=== PATIENT | male | born 1980 | race Two or more races ===

== ENCOUNTER 2022-09-26 22:03 | Emergency (ER) | payer OTHER ==
[~2022-09-26] VITALS: Ht 188 cm; Wt 113.4 kg
== END 2022-09-27 03:48 | disposition home or self-care (01) ==
LOC: ER 22:03
DX: S92.911A Unspecified fracture of right toe(s), initial encounter for closed fracture (principal); X58.XXXA Exposure to other specified factors, initial encounter; Y93.9 Activity, unspecified; Y92.9 Unspecified place or not applicable; Y99.9 Unspecified external cause status